=== PATIENT | male | born 1980 | race African-American/Black ===

== ENCOUNTER 2018-01-02 13:38 | Emergency (ER) | payer SELFPAY ==
[2018-01-02] MEDS: HYDROcodone/APAP 5/325MG 1 TAB TABLET PO (14:23)
== END 2018-01-02 14:31 | disposition home or self-care (01) ==
LOC: ER 14:31
DX: G89.29 Other chronic pain (principal); M25.561 Pain in right knee; F12.10 Cannabis abuse, uncomplicated
CPT/HCPCS: 99283

== ENCOUNTER 2020-05-09 05:31 | Emergency (ER) | payer SELFPAY ==
[~2020-05-09] VITALS: Ht 185.4 cm; Wt 84.1 kg
[~2020-05-09 05:31] MED LIST: HYDR-3164 PO
[2020-05-09 05:43] VITALS: BP 124/85
--- NOTE | 2020-05-09 06:15 | PHYS DOC ---
Past Medical History Past Medical History: No Pertinent History Past Surgical History: Other Additional Past Surgical Histo: fx jaw Smoking Status: Current Every Day Smoker Alcohol Use: Heavy Drug Use: Marijuana, Opiates General Adult EDM: Chief Complaint: FINGER INJURY HPI: HPI: Patient is a 39 year old right handed male who presents with a chief complaint of left index finger pain. Patient states someone injured it today but is unclear about the exact details of what happened. Patient describes moderate pain in the left index is worse with range of motion. No distal weakness or numbness. Review of Systems: Review of Systems: Constitutional: Denies fever or chills. [] Eyes: Denies change in visual acuity. [] HENT: Denies nasal congestion or sore throat. [] Respiratory: Denies cough or shortness of breath. [] Cardiovascular: Denies chest pain or edema. [] GI: Denies abdominal pain, nausea, vomiting, bloody stools or diarrhea. [] : Denies dysuria. [] Musculoskeletal: Denies back pain but complains of left index finger pain Integument: Denies rash. [] Neurologic: Denies headache, focal weakness or sensory changes. [] Endocrine: Denies polyuria or polydipsia. [] Lymphatic: Denies swollen glands. [] Psychiatric: Denies depression or anxiety. [] Heart Score: Risk Factors: Risk Factors: DM, Current or recent (<one month) smoker, HTN, HLP, family history of CAD, obesity. Risk Scores: Score 0 - 3: 2.5% MACE over next 6 weeks - Discharge Home Score 4 - 6: 20.3% MACE over next 6 weeks - Admit for Clinical Observation Score 7 - 10: 72.7% MACE over next 6 weeks - Early Invasive Strategies Allergies: Allergies: Allergies Coded Allergies Type Severity Reaction Last Updated Verified No Known Drug Allergies 06/17/14 No Physical Exam: PE: Constitutional: Well developed, well nourished, no acute distress, non-toxic appearance. [] HENT: Normocephalic, atraumatic, bilateral external ears normal, no trismus nose normal. [] Eyes: PERRLA, EOMI, conjunctiva normal, no discharge. [] Neck: Normal range of motion, no tenderness, supple, no stridor. [] Cardiovascular:Heart rate regular rhythm, peripheral pulse intact, cap refill brisk Lungs & Thorax: Bilateral breath sounds clear, no respiratory distress Abdomen: No distention Skin: Warm, dry, no erythema, no rash. [] Back: No tenderness, no CVA tenderness. [] Extremities: Left index finger with tenderness and swelling and deformity at the PIP Neurologic: Alert and oriented X 3, normal motor function, normal sensory function, no focal deficits noted. [] Psychologic: Affect normal, judgement normal, mood normal. [] Current Patient Data: Vital Signs: Vital Signs Date Time Temp Pulse Resp B/P (MAP) Pulse Ox O2 Delivery O2 Flow Rate FiO2 05/09/20 05:43 97.7 81 18 124/85 (98) 94 Room Air 97.7 EKG: EKG: [] Radiology/Procedures: Radiology/Procedures: [] After informed consent was obtained 1% lidocaine was used to perform a digital block on the left index finger. A dorsal approach was used and 3 cc total of 1% lidocaine was used to anesthetize the left index finger after alcohol prep was used to prep the skin. Good anesthesia was achieved After informed consent was obtained left index finger PIP dislocation was reduced with traction. Patient tolerated well after digital block was performed, postreduction x-rays been ordered. Aluminum splint was applied to the left index finger by tech examined by me post application vascular intact, still numb due to digital block. [facility] [address] [place] [address] IMAGING REPORT Signed PATIENT: LIT MAHMOOD AACCOUNT: [id number] : 1980 LOCATION: ER AGE: 39 SEX: M EXAM STATUS: REG ER ORD. PHYSICIAN: RYAN VALDES DO REASON: deformity PROCEDURE: FINGER(S) LEFT FINGER(S) LEFT Clinical Indication: Reason: deformity / Spl. Instructions: / History: Comparison: None. Findings: There is dislocation of the second PIP joint. The middle phalanx is posteriorly dislocated in relation to the proximal phalanx with about 7 mm of overlap of the phalanges. There is associated soft tissue swelling. No acute fracture is identified. Small well-corticated body lateral to the head of the third proximal phalanx may be accessory ossicle or due to old injury. IMPRESSION: Posterior dislocation of the second PIP joint. Electronically signed by: Seth Haines MD (05/09/2020 6:40 AM) DENISMELISA DICTATED and SIGNED BY: SETH HAINES MD DATE: 05/09/20 0640 [facility] [address] [place] [address] IMAGING REPORT Signed PATIENT: LIT MAHMOOD AACCOUNT: [id number] : 1980 LOCATION: ER AGE: 39 SEX: M EXAM STATUS: REG ER ORD. PHYSICIAN: DIGNA RICHARD MD REASON: post reduction PROCEDURE: FINGER(S) LEFT FINGER(S) LEFT Clinical Indication: Reason: post reduction / : Comparison: Left finger radiograph, earlier same day. Findings: Interval reduction of the dislocated second PIP joint. There is a tiny bone fragment medial to the PIP joint which could be an acute tiny fracture fragment. A donor site is not identified. There is dorsal soft tissue swelling of the PIP joint. There is soft tissue swelling of the third PIP joint. IMPRESSION: Successful reduction of dislocated second PIP joint. Please see above discussion. Electronically signed by: Seth Haines MD (05/09/2020 7:12 AM) DENISMELISA DICTATED and SIGNED BY: SETH HAINES MD DATE: 05/09/20 0712 Course & Med Decision Making: Course & Med Decision Making Pertinent Labs and Imaging studies reviewed. (See chart for details) [] 39-year-old male with a dislocated PIP joint. The joint has been successfully reduced. There is possible fracture fragment which may be acute. Patient has been immobilized and informed of the possible fracture need for orthopedic follow-up. Alessio Disclaimer: Alessio Disclaimer: This electronic medical record was generated, in whole or in part, using a voice recognition dictation system. Departure Departure Impression: Primary Impression: Dislocation of proximal interphalangeal joint of left index finger Additional Impression: Fracture of phalanx of left index finger Disposition: 01 HOME, SELF-CARE Condition: STABLE Referrals: NO PCP (PCP) ANIYAH MONTANA II, MD 2-3 days Patient Instructions: Finger Dislocation Additional Instructions: EMERGENCY DEPARTMENT GENERAL DISCHARGE INSTRUCTIONS THANK YOU for coming to [facility] Emergency Department (ED) today and trusting us with your care. We trust that you had a positive experience in our Emergency Department. If you wish to speak to the department Management you can contact the supervisor last model department at . YOUR FOLLOW UP INSTRUCTIONS ARE FOLLOWS: Do you have a private doctor? If you do not have a private doctor, please ask for a resource list of physicians or clinics that may be able to assist you with follow up care. The Emergency Physician has interpreted your x-rays. The X-ray specialist will also review them. If there is a change in the findings you will be notified in 48 hours when at all possible. A lab test or lab culture may have been done, your results will be reviewed and you will be notified if you need a change in treatment. ADDITIONAL INSTRUCTIONS AND INFORMATION Your care today has been supervised by a physician who is specially trained in emergency care. Many problems require more than one evaluation for a complete diagnosis and treatment. We recommend that you schedule your follow up appointment as recommended to ensure complete treatment of your illness or injury. If you are unable to obtain follow up care and continue to have a problem, or if your condition worsens we recommend that you return to the ED. We are not able to safely determine your condition over the phone nor are we able to give sound medical advice over the phone. For these safety reasons, if you call for medical advice we will ask you to come to the ED for further evaluation If you have any questions regarding these discharge instructions please call the ED at . SAFETY INFORMATION In the interest of safety, wellness, and injury prevention; we encourage you to wear your seatbelt, if you smoke; quit smoking, and we encourage your family to use protective helmet for bicycling and other sporting events that present an increased risk for head injury. IF YOUR SYMPTOMS WORSEN OR NEW SYMPTOMS DEVELOP, OR YOU HAVE CONCERNS ABOUT YOUR CONDITION; OR IF YOUR CONDITION WORSENS WHILE YOU ARE WAITING FOR YOUR FOLLOW UP APPOINTMENT; EITHER CONTACT YOUR PRIMARY CARE DOCTOR, THE PHYSICIAN WHOSE NAME AND NUMBER YOU WERE GIVEN, OR RETURN TO THE ED IMMEDIATELY. Scripts Ibuprofen (IBUPROFEN) 600 Mg Tablet 600 MG PO PRN Q6HRS PRN for PAIN, #20 TAB take with food or milk Prov: DIGNA RICHARD MD 05/09/20 Justicifation of Admission Dx: Justifications for Admission: Justification of Admission Dx: N/A DIGNA RICHARD MD May 09, 2020 06:15
[2020-05-09] MEDS ORDERED: LIDOCAINE 1% Multi-Dose 20 ML VIAL. INJ ONE (06:30)
--- NOTE | 2020-05-09 06:42 | RAD ---
FINGER(S) LEFT Clinical Indication: Reason: deformity / Spl. Instructions: / History: Comparison: None. Findings: There is dislocation of the second PIP joint. The middle phalanx is posteriorly dislocated in relation to the proximal phalanx with about 7 mm of overlap of the phalanges. There is associated soft tissue swelling. No acute fracture is identified. Small well-corticated body lateral to the head of the third proximal phalanx may be accessory ossicle or due to old injury. IMPRESSION: Posterior dislocation of the second PIP joint. Electronically signed by: Seth Haines MD (05/09/2020 6:40 AM) DENISMELISA
--- NOTE | 2020-05-09 07:15 | RAD ---
FINGER(S) LEFT Clinical Indication: Reason: post reduction / : Comparison: Left finger radiograph, earlier same day. Findings: Interval reduction of the dislocated second PIP joint. There is a tiny bone fragment medial to the PIP joint which could be an acute tiny fracture fragment. A donor site is not identified. There is dorsal soft tissue swelling of the PIP joint. There is soft tissue swelling of the third PIP joint. IMPRESSION: Successful reduction of dislocated second PIP joint. Please see above discussion. Electronically signed by: Seth Haines MD (05/09/2020 7:12 AM) [facility]
[2020-05-09] MEDS ORDERED: IBUP-1007 PO (07:17)
== END 2020-05-09 07:41 | disposition home or self-care (01) ==
LOC: ER 05:31
DX: S62.611A Displaced fracture of proximal phalanx of left index finger, initial encounter for closed fracture (principal); F17.200 Nicotine dependence, unspecified, uncomplicated; F10.20 Alcohol dependence, uncomplicated; Y90.9 Presence of alcohol in blood, level not specified; X58.XXXA Exposure to other specified factors, initial encounter; Y93.89 Activity, other specified; Y92.89 Other specified places as the place of occurrence of the external cause; Y99.8 Other external cause status
CPT/HCPCS: 26742; 73140; 99284; J3490

== ENCOUNTER 2020-09-02 13:39 | Emergency (ER) | payer SELFPAY ==
[~2020-09-02] VITALS: Ht 185.4 cm; Wt 86.1 kg
[~2020-09-02 13:39] MED LIST changes: +IBUP-1007 PO
[2020-09-02 14:16] VITALS: BP 117/50
[2020-09-02] MEDS ORDERED: metroNIDAZOLE 500 MG TABLET PO ONE (15:15)
[2020-09-02] MEDS ORDERED: AZITHROMYCIN 250 MG TABLET. PO ONE (15:15)
[2020-09-02] MEDS ORDERED: LIDOCAINE 2% TOPICAL JELLY 30GM TUBE. TP ONE (15:15)
[2020-09-02] MEDS ORDERED: cefTRIAXone IM 250 MG VIAL IM ONE (15:15)
[2020-09-02] MEDS ORDERED: LIDO30CR TP (16:18)
[2020-09-02] MEDS ORDERED: POLY17PO29 PO (16:18)
[2020-09-02] MEDS ORDERED: HYDR30CR61 TP (16:18)
[2020-09-02] MEDS ORDERED: DOCU100C28 PO (16:18)
--- NOTE | 2020-09-02 16:18 | PHYS DOC ---
Past Medical History Past Medical History: Other Additional Past Medical Histor: "i had a heart attack a couple years ago" Low Magnesium Past Surgical History: Other Additional Past Surgical Histo: fx jaw,KNEE Smoking Status: Current Every Day Smoker Alcohol Use: Rarely Drug Use: Marijuana, Opiates General Adult EDM: Chief Complaint: ABSCESS HPI: HPI: Patient is a 39 year old male patient presented to the ED today complaining of hemorrhoid that started 2 days ago while he was bearing to have a bowel movement. Patient denies any abdominal pain, denies any nausea vomiting. He states he has been using hemorrhoid cream with some relief. He is also complaining of penile discharge and would like to be treated for STDs. Review of Systems: Review of Systems: Constitutional: Denies fever or chills. [] Eyes: Denies change in visual acuity. [] HENT: Denies nasal congestion or sore throat. [] Respiratory: Denies cough or shortness of breath. [] Cardiovascular: Denies chest pain or edema. [] GI: Reports hemorrhoid. Denies abdominal pain, nausea, vomiting, bloody stools or diarrhea. [] : Reports penile discharge. Denies dysuria. [] Musculoskeletal: Denies back pain or joint pain. [] Integument: Denies rash. [] Neurologic: Denies headache, focal weakness or sensory changes. [] Psychiatric: Denies depression or anxiety. [] Heart Score: Risk Factors: Risk Factors: DM, Current or recent (<one month) smoker, HTN, HLP, family history of CAD, obesity. Risk Scores: Score 0 - 3: 2.5% MACE over next 6 weeks - Discharge Home Score 4 - 6: 20.3% MACE over next 6 weeks - Admit for Clinical Observation Score 7 - 10: 72.7% MACE over next 6 weeks - Early Invasive Strategies Current Medications: Current Medications Medications (Trade) Dose Ordered Sig/Lance Start Time Stop Time Status Last Admin Dose Admin Azithromycin (Zithromax) 1,000 mg 1X ONCE 09/02/20 15:15 09/02/20 15:16 DC 09/02/20 15:41 1,000 MG Ceftriaxone Sodium (Rocephin Im) 500 mg 1X ONCE 09/02/20 15:15 09/02/20 15:16 DC 09/02/20 15:45 250 MG Lidocaine HCl (Xylocaine 2% Topical 30gm Tube) 1 henry 1X ONCE 09/02/20 15:15 09/02/20 15:16 DC 09/02/20 15:22 1 HENRY Metronidazole (Flagyl) 2,000 mg 1X ONCE 09/02/20 15:15 09/02/20 15:16 DC 09/02/20 15:42 2,000 MG Allergies: Allergies: Allergies Coded Allergies Type Severity Reaction Last Updated Verified No Known Drug Allergies 06/17/14 No Physical Exam: PE: Constitutional: Well developed, well nourished, no acute distress, non-toxic appearance. [] HENT: Normocephalic, atraumatic, bilateral external ears normal, oropharynx moist, no oral exudates, nose normal. [] Eyes: PERRLA, EOMI, conjunctiva normal, no discharge. [] Neck: Normal range of motion, no tenderness, supple, no stridor. [] Cardiovascular:Heart rate regular rhythm, no murmur [] Lungs & Thorax: Bilateral breath sounds clear to auscultation [] Abdomen: Bowel sounds normal, soft, no tenderness, no masses, no pulsatile masses. [] Rectal exam External rectum with a mild size nonthrombosed external hemorrhoid with no drainage. Skin: Warm, dry, no erythema, no rash. [] Back: No tenderness, no CVA tenderness. [] Extremities: No tenderness, no cyanosis, no clubbing, ROM intact, no edema. [] Neurologic: Alert and oriented X 3, normal motor function, normal sensory function, no focal deficits noted. [] Psychologic: Affect normal, judgement normal, mood normal. [] Current Patient Data: Vital Signs: Vital Signs Date Time Temp Pulse Resp B/P (MAP) Pulse Ox O2 Delivery O2 Flow Rate FiO2 09/02/20 14:16 98.1 72 14 117/50 (72) 96 Room Air 98.1 EKG: EKG: [] Radiology/Procedures: Radiology/Procedures: [] Course & Med Decision Making: Course & Med Decision Making Pertinent Labs and Imaging studies reviewed. (See chart for details) This is a 39-year-old male patient presenting to the ED today with rectal hemorrhoid that is nonthrombosed. Patient appears to have constipation as underlying cause. Discharged with MiraLAX as well as education on bowel preps and softening his bowels. Discharged with Anusol and lidocaine. Also requested STD treatment which was provided in the ED as well as indication. Dragon Disclaimer: Alessio Disclaimer: This electronic medical record was generated, in whole or in part, using a voice recognition dictation system. Departure Departure Impression: Primary Impression: Hemorrhoid Qualified Codes: K64.9 - Unspecified hemorrhoids Additional Impression: Concern about STD in male without diagnosis Disposition: 01 DC HOME SELF CARE/HOMELESS Condition: STABLE Referrals: NO PCP (PCP) Follow-up with your doctor in 1 to 2 weeks Patient Instructions: Hemorrhoids, Sexually Transmitted Disease, [id number] Additional Instructions: You were treated for sexually transmitted diseases. Use protection at all times. Please consider increasing your dietary fiber intake as well as water intake to prevent hemorrhoids. Use Anusol cream it will help with some of the hemorrhoid discomfort, the lidocaine cream will also help. Take MiraLAX every d ay. Scripts Hydrocortisone (ANUSOL-HC) 30 Gm Cream..g. 1 HENRY TP TID for 10 Days, #30 GM 0 Refills Prov: DIDIER ALANIZ APRN 09/02/20 Lidocaine/Prilocaine (LIDOCAINE-PRILOCAINE CREAM) 30 Gm Cream..g. 1 HENRY TP UD, #30 GM 1 Refill Apply to rectal hemorrhoid every 6 hours as needed for pain Prov: DIDIER ALANIZ APRN 09/02/20 Polyethylene Glycol 3350 (MIRALAX) 17 Gm Powd.pack 1 PACKET PO DAILY for constipation for 2 Days, #2 PACKET 0 Refills dissolve in water Prov: DIDIER ALANIZ APRN 09/02/20 Docusate Sodium (DOCUSATE SODIUM) 100 Mg Capsule 1 CAP PO BID for constipation for 7 Days, #14 CAP 0 Refills Prov: DIDIER ALANIZ APRN 09/02/20 DIDIER ALANIZ APRN Sep 02, 2020 16:18
== END 2020-09-02 16:24 | disposition home or self-care (01) ==
LOC: ER 13:39
DX: K64.4 Residual hemorrhoidal skin tags (principal); R36.9 Urethral discharge, unspecified; F17.200 Nicotine dependence, unspecified, uncomplicated
CPT/HCPCS: 96372; 99284; J0696

== ENCOUNTER 2021-05-15 16:59 | Emergency (ER) | payer OTHER ==
[~2021-05-15] VITALS: Ht 185.4 cm; Wt 77.0 kg
[~2021-05-15 16:59] MED LIST changes: +DOCU100C28 PO; +HYDR30CR61 TP; +LIDO30CR2 TP; +POLY17PO29 PO
[2021-05-15 17:30] VITALS: BP 140/93
[2021-05-15] MEDS ORDERED: DOXY100T PO (17:44)
--- NOTE | 2021-05-15 17:44 | PHYS DOC ---
Past Medical History Past Medical History: Other Additional Past Medical Histor: "i had a heart attack a couple years ago" Low Magnesium Past Surgical History: Other Additional Past Surgical Histo: fx jaw,KNEE Smoking Status: Current Every Day Smoker Alcohol Use: Rarely Drug Use: Marijuana, Opiates General Adult EDM: Chief Complaint: SEXUALLY TRANSMITTED DISEASE HPI: HPI: Patient is a 40 year old male who presents to the ED today stating the girlfriend called him and reported she has chlamydia. Patient denies any s ymptoms. Review of Systems: Review of Systems: Constitutional: Denies fever or chills. [] GI: Denies abdominal pain, nausea, vomiting, bloody stools or diarrhea. [] : Request for STD treatment, exposure to chlamydia denies dysuria. [] Musculoskeletal: Denies back pain or joint pain. [] Integument: Denies rash. [] Neurologic: Denies headache, focal weakness or sensory changes. [] Psychiatric: Denies depression or anxiety. [] Heart Score: C/O Chest Pain: N/A Risk Factors: Risk Factors: DM, Current or recent (<one month) smoker, HTN, HLP, family history of CAD, obesity. Risk Scores: Score 0 - 3: 2.5% MACE over next 6 weeks - Discharge Home Score 4 - 6: 20.3% MACE over next 6 weeks - Admit for Clinical Observation Score 7 - 10: 72.7% MACE over next 6 weeks - Early Invasive Strategies Allergies: Allergies: Allergies Coded Allergies Type Severity Reaction Last Updated Verified No Known Drug Allergies 06/17/14 No Physical Exam: PE: Constitutional: Well developed, well nourished, no acute distress, non-toxic appearance. [] Abdomen: Bowel sounds normal, soft, no tenderness, no masses, no pulsatile masses. [] Skin: Warm, dry, no erythema, no rash. [] Back: No tenderness, no CVA tenderness. [] Extremities: No tenderness, no cyanosis, no clubbing, ROM intact, no edema. [] Neurologic: Alert and oriented X 3, normal motor function, normal sensory function, no focal deficits noted. [] Psychologic: Affect normal, judgement normal, mood normal. [] Current Patient Data: Vital Signs: Vital Signs Date Time Temp Pulse Resp B/P (MAP) Pulse Ox O2 Delivery O2 Flow Rate FiO2 05/15/21 17:30 98.7 72 16 140/93 (109) 97 Room Air 98.7 EKG: EKG: [] Radiology/Procedures: Radiology/Procedures: [] Course & Med Decision Making: Course & Med Decision Making Pertinent Labs and Imaging studies reviewed. (See chart for details) This a 40-year-old male patient presented to the ED today stating that his girlfriend called him and reported she has chlamydia. Patient denies any symptoms. She was given Rocephin and started on doxycycline. Rx for doxycycline sent to his pharmacy. Education provided on STDs as well as with instructions Alessio Disclaimer: Dragon Disclaimer: This electronic medical record was generated, in whole or in part, using a voice recognition dictation system. Departure Departure Impression: Primary Impression: Concern about STD in male without diagnosis Disposition: HOME / SELF CARE / HOMELESS Condition: STABLE Referrals: NO PCP (PCP) Follow-up with the health department as needed Patient Instructions: Sexually Transmitted Disease, [id number] Additional Instructions: You were treated for sexually transmitted diseases. Please do not have any intercourse for 2 weeks. Use protection after that. Complete the prescribed antibiotics. Contact all your sex partners and let them know you were treated for STDs and ask them to seek treatment too Scripts Doxycycline Hyclate (DOXYCYCLINE HYCLATE) 100 Mg Tablet 1 TAB PO BID, #14 TAB Prov: DIDIER ALANIZ APRN 05/15/21 DIDIER ALANIZ APRN May 15, 2021 17:44
[2021-05-15] MEDS ORDERED: DOXYCYCLINE HYCLATE 100 MG TABLET PO ONE (17:45)
[2021-05-15] MEDS ORDERED: cefTRIAXone IM 500 MG VIAL. IM ONE (17:45)
== END 2021-05-15 18:23 | disposition home or self-care (01) ==
LOC: ER 16:59
DX: Z20.2 Contact with and (suspected) exposure to infections with a predominantly sexual mode of transmission (principal); F17.200 Nicotine dependence, unspecified, uncomplicated
CPT/HCPCS: 96372; 99283; J0696

== ENCOUNTER 2021-10-13 15:47 | Emergency (ER) | payer SELFPAY ==
[~2021-10-13] VITALS: Ht 185.4 cm; Wt 81.2 kg
[~2021-10-13 15:47] MED LIST changes: +DOXY100T PO
[2021-10-13] MEDS ORDERED: AMOXICILLIN/K CLAV 875/125MG TABLET. PO ONE (17:30)
[2021-10-13] MEDS ORDERED: DIPHTH,PERTUSS(ACELL),TET TOX 0.5 ML DISP.SYRIN. VAX IM ONE (17:30)
[2021-10-13 17:47] VITALS: BP 127/80
--- NOTE | 2021-10-13 17:52 | PHYS DOC ---
Past Medical History Past Medical History: Other Additional Past Medical Histor: "i had a heart attack a couple years ago" Low Magnesium Past Surgical History: Other Additional Past Surgical Histo: fx jaw,KNEE Smoking Status: Current Every Day Smoker Alcohol Use: Rarely Drug Use: Marijuana, Opiates General Adult EDM: Chief Complaint: ANIMAL BITE HPI: HPI: Patient is a 40 year old male who presents to the ED today to be evaluated for dog bites he sustained yesterday. His friend is doing most of the speaking, his friend states patient was in a vehicle with another friend, he was asked to leave the vehicle by his other friend, his friend instructed his dog to attack him. The dog bit him on his right buttock and left forearm. Review of Systems: Review of Systems: Constitutional: Denies fever or chills. [] Musculoskeletal: Denies back pain or joint pain. [] Integument: Reports dog bite to the left forearm, right buttock Neurologic: Denies headache, focal weakness or sensory changes. [] Psychiatric: Denies depression or anxiety. [] Heart Score: C/O Chest Pain: N/A Risk Factors: Risk Factors: DM, Current or recent (<one month) smoker, HTN, HLP, family history of CAD, obesity. Risk Scores: Score 0 - 3: 2.5% MACE over next 6 weeks - Discharge Home Score 4 - 6: 20.3% MACE over next 6 weeks - Admit for Clinical Observation Score 7 - 10: 72.7% MACE over next 6 weeks - Early Invasive Strategies Current Medications: Current Medications Medications (Trade) Dose Ordered Sig/Lance Start Time Stop Time Status Last Admin Dose Admin Amoxicillin/ Clavulanate Potassium (Augmentin 875/ 125mg) 1 tab 1X ONCE 10/13/21 17:30 10/13/21 17:31 DC Diphtheria/ Tetanus/Acell Pertussis (Boostrix) 0.5 ml ONCE ONCE 10/13/21 17:30 10/13/21 17:31 DC Allergies: Allergies: Allergies Coded Allergies Type Severity Reaction Last Updated Verified No Known Drug Allergies 06/17/14 No Physical Exam: PE: Constitutional: Well developed, well nourished, no acute distress, non-toxic appearance. [] Skin: Ventral aspect mid left forearm with 2 puncture wounds consistent of dog bites and surrounding bruising. No drainage. The dog bites have already scabbed over right upper buttock. With bruising consistent of dog bite. No drainage Back: No tenderness, no CVA tenderness. [] Extremities: No tenderness, no cyanosis, no clubbing, ROM intact, no edema. [] Neurologic: Alert and oriented X 3, normal motor function, normal sensory function, no focal deficits noted. [] Psychologic: Affect normal, judgement normal, mood normal. [] Current Patient Data: Vital Signs: Vital Signs Date Time Temp Pulse Resp B/P (MAP) Pulse Ox O2 Delivery O2 Flow Rate FiO2 10/13/21 16:26 98.2 112 18 142/71 (94) 95 Room Air 98.2 EKG: EKG: [] Radiology/Procedures: Radiology/Procedures: [] Course & Med Decision Making: Course & Med Decision Making Pertinent Labs and Imaging studies reviewed. (See chart for details) This 40-year-old male patient presented to the ED today with a dog bite to the left forearm and right buttock. Case was reported to animal control. Di scharged on Augmentin and tetanus updated. Wound care instructions provided as well as return precautions. Follow-up with PCP in a week Alessio Disclaimer: Alessio Disclaimer: This electronic medical record was generated, in whole or in part, using a voice recognition dictation system. Departure Departure Impression: Primary Impression: Dog bite of buttock Qualified Codes: S31.825A - Open bite of left buttock, initial encounter; W54.0XXA - Bitten by dog, initial encounter Additional Impression: Dog bite of left forearm Qualified Codes: S51.852A - Open bite of left forearm, initial encounter; W54.0XXA - Bitten by dog, initial encounter Disposition: 01 HOME / SELF CARE / HOMELESS Condition: STABLE Referrals: NO PCP (PCP) follow up with your doctor in one week Patient Instructions: Animal Bite, [id number] Additional Instructions: You were evaluated in the emergency room for dog bites. Please wash the areas with soap and water twice a day. Apply Neosporin to the areas twice a day for 7 days. Take the prescribed antibiotics until completed and pain medicine as needed. Follow-up with your doctor in 1 week. Come back to the ED at any point wound condition worsens Scripts Hydrocodone Bit/Acetaminophen (HYDROCODONE-APAP 5-325 ) 1 Tab Tablet 1 TAB PO PRN Q6HRS PRN for PAIN, #8 TAB 0 Refills Prov: DIDIER ALANIZ APRN 10/13/21 Amoxicillin/Potassium Clav (AMOX TR-K CLV 875-125 MG TAB) 1 Each Tablet 1 TAB PO BID, #20 TAB Prov: DIDIER ALANIZ APRN 10/13/21 DIDIER ALANIZ APRN Oct 13, 2021 17:52
[2021-10-13] MEDS ORDERED: HYDR-2761 PO (18:25)
[2021-10-13] MEDS ORDERED: AMOX1TAB11 PO (18:25)
--- NOTE | 2021-10-13 18:37 | RAD ---
EXAM: XR FOREARM_LEFT 2 VIEWS 10/13/2021 5:32 PM CLINICAL INDICATION: Dog bite COMPARISON: None available TECHNIQUE: 2 views of the left forearm FINDINGS: No acute fracture. Alignment is normal. No radiopaque foreign body or focal soft tissue ab normality. IMPRESSION: No acute osseous abnormality or radiopaque foreign body. Electronically signed by: Bridgette Lin MD (10/13/2021 6:35 PM) [id number]
== END 2021-10-13 18:35 | disposition home or self-care (01) ==
LOC: ER 15:47
DX: S31.825A Open bite of left buttock, initial encounter (principal); S51.852A Open bite of left forearm, initial encounter; F17.200 Nicotine dependence, unspecified, uncomplicated; W54.0XXA Bitten by dog, initial encounter; Y93.89 Activity, other specified; Y92.89 Other specified places as the place of occurrence of the external cause; Y99.8 Other external cause status
CPT/HCPCS: 73090; 90471; 90715; 99283